=== PATIENT | female | born 1975 | race African-American/Black ===

== ENCOUNTER 2018-04-28 15:27 | Emergency (ER) | payer BC, MEDICAID ==
[~2018-04-28] VITALS: Ht 162.6 cm; Wt 54.0 kg
[2018-04-28 16:06] VITALS: BP 113/59
[2018-04-28 16:49] LABS: CHLORIDE 109 mEq/L (98-107)
[2018-04-28 16:50] LABS: HCG SCREEN NEGATIVE
[2018-04-28 16:52] LABS: BASOPHILS % 0.9 % (0.0-2.0); EOSINOPHILS % 0.7 % (0.0-5.0); HEMATOCRIT. 29.8 % (36.0-48.0); HEMOGLOBIN. 10.1 g/dL (12.0-16.0); LYMPHOCYTES % 30.9 % (20.0-50.0); MEAN CORPUSCULAR HEMOGLOBIN 30.2 pg (28.0-32.0); MEAN CORPUSCULAR VOLUME 89.3 fL (81.0-99.0); MEAN PLATELET VOLUME 8.5 fl (7.4-10.4); MONOCYTES % 7.4 % (2.0-8.0); NEUTROPHILS % 60.1 % (40.0-76.0); PLATELET 245 x1000/uL (130-400); RED BLOOD CELL COUNT 3.34 mill/uL (4.2-5.4); RED CELL DISTRIBUTION WIDTH 13.5 % (11.6-14.6)
== END 2018-04-28 19:00 | disposition left against medical advice (07) ==
LOC: ER 15:27
DX: R42 Dizziness and giddiness (principal); D64.9 Anemia, unspecified; F17.200 Nicotine dependence, unspecified, uncomplicated
CPT/HCPCS: 36415; 80048; 84703; 85025; 93005; 99285

== ENCOUNTER 2018-08-03 11:09 | Emergency (ER) | payer BC, MEDICAID ==
[~2018-08-03] VITALS: Ht 167.6 cm; Wt 54.0 kg
[2018-08-03] MEDS ORDERED: SODIUM CHLORIDE 0.9% 1,000 ML IV ONE (11:30)
[2018-08-03] MEDS: MECLIZINE 25MG TABLET PO ONE ×2 (11:42→11:50)
[2018-08-03 12:03] LABS: BASOPHILS % 1.2 % (0.0-2.0); EOSINOPHILS % 1.5 % (0.0-5.0); HEMATOCRIT. 28.9 % (36.0-48.0); HEMOGLOBIN. 9.6 g/dL (12.0-16.0); LYMPHOCYTES % 32.3 % (20.0-50.0); MEAN CORPUSCULAR HEMOGLOBIN 29.2 pg (28.0-32.0); MEAN CORPUSCULAR VOLUME 87.3 fL (81.0-99.0); MONOCYTES % 8.3 % (2.0-8.0); NEUTROPHILS % 56.7 % (40.0-76.0); PLATELET 289 x1000/uL (130-400); RED BLOOD CELL COUNT 3.31 mill/uL (4.2-5.4); RED CELL DISTRIBUTION WIDTH 14.7 % (11.6-14.6)
[2018-08-03 12:06] LABS: CHLORIDE 107 mEq/L (98-107)
[2018-08-03 12:30] LABS: HCG SCREEN NEGATIVE
[2018-08-03 17:20] VITALS: BP 118/64
== END 2018-08-03 17:20 | disposition home or self-care (01) ==
LOC: ER 11:09
DX: R42 Dizziness and giddiness (principal); R51 Headache; R03.0 Elevated blood-pressure reading, without diagnosis of hypertension; Z88.8 Allergy status to other drugs, medicaments and biological substances
CPT/HCPCS: 36415; 70450; 71045; 80048; 81025; 83735; 84484; 84703; 85025; 93005; 96360; 99285; J7030; Z7610; J8597